=== PATIENT | male | born 1945 | race Caucasian/White ===

== ENCOUNTER 2023-03-10 21:01 | Emergency (ER) | payer OTHER ==
--- OUTSIDE RECORDS SUMMARY | 2023-03-10 21:03 | XMS REPORT | Continuity of Care Document ---
:1945 Author Organization [facility] t Address [address] [place] [address] Care Team Providers Name Role Phone Nora LANDEROS, Alexander Romero Primary Care Physician Raghavendra LANDEROS, Kevan Hayes Attending Clinician Tatyana Burgos Attending Clinician [phone] Payers Payer Name Policy Type Policy Number Effective Date Expiration Date S ource Problems Condition Condition Condition Status Onset Resolution Last Treating Co mments Source Name Details Category Date Date Treatment Clinician Date Lumbar Lumbar Disease Active [facility] stenosis stenosis 03-05 st with with 00:00: Hospita neurogenic neurogenic 00 l claudicati claudicati on on Allergies, Adverse Reactions, Alerts This patient has no known allergies or adverse reactions. Family History Family Member Diagnosis Comments Start Date Stop Date Source [facility] mother Old age [facility] Social History Social Habit Start Date Stop Date Quantity Comments Source Gender identity [facility] Sexual orientation [facility] History of Social 2022-10-19 2022-10-[address] function 00:00:00 00:00:00 Hospital Alcohol intake 2017-03-08 2017-03-08 Current Buddhist 00:00:00 00:00:00 non-drinker of Hospital alcohol (finding) Tobacco use and 2017-02-26 2017-02-26 Smokeless Buddhist exposure 00:00:00 00:00:00 tobacco non-user Hospital History of tobacco 1992-02-27 Current smoker [facility] use 00:00:00 Hospital Sex Ass[birth year] At [birth year] Buddhist 00:00:00 00:00:00 Hospital Smoking Status Start Date Stop Date Source Ex-smoker 2017-02-26 00:00:00 2017-02-26 00:00:00 [facility] Medications Ordered Filled Start Stop Current Ordering Indication Dosage Frequency Signature Comments Components Source Medication Medication Date Date Medication? Clinician (SIG) Name Name lisinopril Yes 20mg QD Take 20 mg M ethodi (PRINIVIL,Z 8-[address] ESTRIL) 20 10:33: nightly. Hos willie mg tablet 15 l amLODIPine Yes 5mg QD Take 5 mg Me thodi (NORVASC) 5 8-[address] mg tablet 10:33: daily. Hospit a 15 l simvastatin Yes 10mg QD Take 10 mg Methodi (ZOCOR) 10 8-[address] MG tablet 10:33: nightly. Hosp madai 15 l aspirin Yes 81mg QD Take 81 mg Meth everardo (ECOTRIN) 8-[address] 81 MG 10:33: daily. Hospita enteric 15 l coated tablet methocarbam Yes Take 1 Meth everardo ol 8-[address] (ROBAXIN-75 00:00: every 6 Hos willie 0) 750 MG 00 hours as l tablet needed for spasms Procedures Procedure Date / Time Performed Performing Clinician Rodo de la cruz US CAROTID DUPLEX 2022-05-15 16:25:48 Tatyana Duek [facility] SUZIE Mariscal Plan of Care Planned Activity Planned Date Details Comments Source Future Scheduled 2023-02-17 COVID-19 VACCINE (#1) [facility] Test 03:06:58 [code = COVID-19 VACCINE (#1)] Future Scheduled 2023-02-17 Hepatitis C screening [facility] Test 03:06:58 (procedure) [code = [id number]] Future Scheduled 2023-02-17 SHINGLES VACCINES (1 Met [facility] Test 03:06:58 of 2) [code = SHINGLES VACCINES (1 of 2)] Future Scheduled 2023-02-17 65+ PNEUMOCOCCAL [facility] Test 03:06:58 VACCINE (1 - PCV) [code = 65+ PNEUMOCOCCAL VACCINE (1 - PCV)] Future Scheduled 2023-02-17 INFLUENZA VACCINE [facility] Test 03:06:58 [code = INFLUENZA VACCINE] Encounters Start End Encounter Admission Attending Care Care Encounter Source Date/Time Date/Time Type Type Clinicians Facility Department ID 2021-08-21 Outpatient MDA PAULETTE [id number] 17:24:51 Andlolao n 2022-05-15 2022-05-15 [facility] Raghavendra, 1.2.840.1 [id number] Methodi 09:50:21 23:59:00 Encounter Kevan Hayes [id number] 3.430.2.7 Hospit a .[id number] l .8 2022-05-15 2022-05-15 [facility] [id number] 00:00:00 00:00:[address] KEVAN [address] 2022-05-15 2022-05-15 Travel 1.2.840.1 [id number] Methodi 00:00:00 00:00:[id number] 3.430.2.7 0.2.7.3.698 Ho spita .[id number] 084.8 l .8 2022-05-12 2022-05-12 Transcribe Marizolavrilgwen, 1.2.840.1 [id number] Method[facility] 00:00:00 00:00:00 Orders Tatyana 58144.1.[address] [place] 3.430.2.7 Hosp madai .[id number] l .8 Results This patient has no known results.
--- NOTE | 2023-03-10 21:49 | RAD REPORT ---
EXAM DESCRIPTION: RAD - Chest Single View - 03/10/2023 9:40 pm CLINICAL HISTORY: Cough;Dyspnea Chest pain. COMPARISON: No comparisons FINDINGS: Portable technique limits examination quality. Mild linear opacities bilaterally are nonspecific but may represent viral infection or interstitial e roula. The heart is mildly enlarged in size. No displaced fractures.
[2023-03-10 22:14] LABS: Hematocrit 41.8 % (39.6-49.0); Lymphocytes % 11.8 % (15.3-44.8); MCV 90.3 fL (80-100); MPV 8.9 fL (7.6-11.3); Platelets 119 thou/uL (152-406); RBC Red Blood Cell Count 4.63 M/uL (4.33-5.43)
[2023-03-10 22:33] LABS: Potassium 3.9 mEq/L (3.5-5.1)
--- NOTE | 2023-03-11 00:35 | ER ---
Nurse's Notes [facility] Name: Yulissa Loera Age: 77 yrs Sex: Male : 1945 Arrival Date: 03/10/2023 Time: 21:01 Bed 2 Private MD: Diagnosis: SARS-associated coronavirus as the cause of diseases classified elsewhere;Muscle weakness (generalized);Cough Presentation: 03/10 21:22 Chief complaint: Patient states: sick since Wednesday. tested positive for covid today. lg3 worsening symptoms. sore throat, cough, congestion, SOB, fatigue. Coronavirus screen: Client presents with at least one sign or symptom that may indicate coronavirus-19. Standard/surgical mask placed on the client. Ebola Screen: No symptoms or risks identified at this time. Initial Sepsis Screen: Does the patient meet any 2 criteria? No. Patient's initial sepsis screen is negative. Does the patient have a suspected source of infection? Yes: Productive cough/pneumonia. Risk Assessment: Do you want to hurt yourself or someone else? Patient reports no desire to harm self or others. Onset of symptoms was March 08, 2023. 21:22 Method Of Arrival: Ambulatory lg3 21:22 Acuity: SOFIYA 3 lg3 Triage Assessment: 21:29 General: Appears in no apparent distress. uncomfortable, Behavior is calm, cooperative. lg3 Pain: Complains of pain in generalized body aches. EENT: No deficits noted. Reports nasal congestion nasal discharge. Neuro: No deficits noted. Haddad Agitation-Sedation Scale (RASS): 0 - Alert and Calm Level of Consciousness is awake, alert, obeys commands, Oriented to person, place, time, situation. Cardiovascular: Capillary refill < 3 seconds Clubbing of nail beds is absent JVD is absent Patient's skin is warm and dry. Respiratory: Reports shortness of breath cough that is pain with cough Onset: The symptoms/episode began/occurred yesterday, the patient has moderate shortness of breath. GI: No deficits noted. No signs and/or symptoms were reported involving the gastrointestinal system. : No deficits noted. No signs and/or symptoms were reported regarding the genitourinary system. Derm: No deficits noted. No signs and/or symptoms reported regarding the dermatologic system. Musculoskeletal: Circulation, motion, and sensation intact. Range of motion: intact in all extremities. Historical: - Allergies: 21:24 No Known Allergies; lg3 - Home Meds: 21:24 Lisinopril Oral [Active]; amlodipine oral [Active]; lg3 - PMHx: 21:24 Hypertensive disorder; lung cancer; prostate cancer; lg3 - PSHx: 21:29 right upper lobe resection; cardiac stent X4; back; lg3 - Immunization history:: Adult Immunizations up to date, Client reports receiving the 2nd dose of the Covid vaccine. - Social history:: Smoking status: Patient denies any tobacco usage or history of. Patient/guardian denies using alcohol, street drugs. - Family history:: not pertinent. - Hospitalizations: : No recent hospitalization is reported. Screenin:45 [facility] ED Fall Risk Assessment (Adult) History of falling in the last 3 months, rv including since admission No falls in past 3 months (0 pts) Confusion or Disorientation Yes (5 pts) Intoxicated or Sedated No (0 pts) Impaired Gait No (0 pts) Mobility Assist Device Used No (0 pt) Altered Elimination No (0 pt) Score/Fall Risk Level 0 - 2 = Low Risk Oriented to surroundings, Maintained a safe environment, Educated pt \T\ family on fall prevention, incl call for assistance when getting out of bed, Assessed \T\ reinforced patient's understanding of fall precautions, Provided non-skid footwear, Hourly rounding (assess needs \T\ fall precautionary measures) done, Used ambulatory aids as needed (educated on \T\ assisted with), Used gait belt as appropriate. Abuse screen: Denies threats or abuse. Denies injuries from another. Nutritional screening: No deficits noted. Tuberculosis screening: No symptoms or risk factors identified. Assessment: 22:00 General: Appears in no apparent distress. comfortable, Behavior is calm, cooperative. rv 22:00 Pain: Denies pain. Neuro: Level of Consciousness is awake, alert, obeys commands, rv Oriented to person, place, time, situation. Cardiovascular: Rhythm is regular. Respiratory: Airway is patent Respiratory effort is even, unlabored, Breath sounds are clear bilaterally. GI: No signs and/or symptoms were reported involving the gastrointestinal system. : No signs and/or symptoms were reported regarding the genitourinary system. Derm: Skin is intact. 23:07 Reassessment: No changes from previously documented assessment. Patient and/or family vc1 updated on plan of care and expected duration. Pain level reassessed. Patient is alert, oriented x 3, equal unlabored respirations, skin warm/dry/pink. 03/11 00:01 Reassessment: No changes from previously documented assessment. Patient and/or family vc1 updated on plan of care and expected duration. Pain level reassessed. Patient is alert, oriented x 3, equal unlabored respirations, skin warm/dry/pink. Vital Signs: 03/10 21:22 BP 155 / 80; Pulse 76; Resp 19 S; Pulse Ox 97% on R/A; Weight 83.91 kg (R); Height 5 lg3 ft. 11 in. (R); 22:12 BP 148 / 70; Pulse 75; Pulse Ox 95% ; vc1 23:00 BP 144 / 70; Pulse 71; Resp 20; Pulse Ox 96% ; vc1 03/11 00:08 BP 142 / 74; Pulse 78; Resp 24; Pulse Ox 95% ; vc1 01:21 BP 119 / 67; Pulse 80; Resp 18; Temp 99; Pulse Ox 100% ; rv 03/10 21:22 Body Mass Index 25.80 (83.91 kg, 180.34 cm) lg3 Irasema Coma Score: 01:21 Eye Response: spontaneous(4). Motor Response: obeys commands(6). Verbal Response: rv oriented(5). Total: 15. ED Course: 03/10 21:04 Patient arrived in ED. jj6 21:04 Maninder Streeter MD is Attending Physician. rn 21:24 Triage completed. lg3 21:29 Arm band placed on right wrist. lg3 21:42 XRAY Chest (1 view) In Process Unspecified. EDMS 22:00 Inserted saline lock: 20 gauge in right antecubital area, using aseptic technique. rv Blood collected. 22:00 No provider procedures requiring assistance completed. rv 22:03 Bashir Morrow, TOBY is Primary Nurse. rv 22:46 Patient has correct armband on for positive identification. Bed in low position. Call rv light in reach. Side rails up X 1. Provided Education on: COVID, VACCINES. 23:03 CT Chest For PE Angio In Process Unspecified. EDMS 03/11 00:34 Sterling Guillen MD is Referral Physician. rn 01:22 IV discontinued, intact, bleeding controlled, No redness/swelling at site. Pressure rv dressing applied. Administered Medications: 00:43 Not Given (Not availablee): Paxlovid Dose Pack 150 mg-100 mg (EUA) 1 per protocol PO vc1 Per package directions 00:43 Drug: Levalbuterol Inhalation 1.25 mg Route: Inhalation; vc1 01:21 Follow up: Response: No adverse reaction rv 00:43 Drug: Decadron - Dexamethasone IVP 10 mg Route: IVP; Site: right antecubital; vc1 01:21 Follow up: Response: No adverse reaction rv Medication: 03/10 22:46 VIS not applicable for this client. rv Outcome: 03/11 00:34 Discharge ordered by . rn 01:21 Discharged to home ambulatory, with family. rv 01:21 Condition: improved 01:21 Discharge instructions given to patient, Instructed on discharge instructions, follow up and referral plans. medication usage, Demonstrated understanding of instructions, follow-up care, medications, Prescriptions given X 3. 01:22 Patient left the ED. rv Signatures: Dispatcher [employer] EDMS Maninder Streeter MD MD rn Vicente, Ronaldo, RN RN Kim Lim RN RN corey3 Maeve Batista6 Rosangela Chen RN RN vc1
--- NOTE | 2023-03-11 00:36 | EDPHYS ---
Physician Documentation [facility] Name: Yulissa Loera Age: 77 yrs Sex: Male : 1945 Arrival Date: 03/10/2023 Time: 21:01 Bed 2 Private MD: ED Physician Maninder Streeter HPI: 03/10 21:21 This 77 yrs old Male presents to ER via Unassigned with complaints of COVID+, Shortness rn Of Breath, Sore Throat, Fever, Chest Pain, Congestion. 21:21 The patient has shortness of breath with light activity. Onset: The symptoms/episode rn began/occurred 2 day(s) ago. Duration: The symptoms are intermittent. The patient's shortness of breath is aggravated by coughing, exertion, light activity. Severity of symptoms: At their worst the symptoms were moderate in the emergency department the symptoms are unchanged. The patient has not experienced similar symptoms in the past. Pt reports COVID + x 2 tests today, began feeling sick 2 days ago, thinks got it at [facility]. + fever/chills/cough/congestion/fatigue/decreased appetite. No vomiting. Does report small amount of blood in sputum. Has hx of right lower lung resection. NO hx of dvt/PE. . Historical: - Allergies: 21:24 No Known Allergies; lg3 - Home Meds: 21:24 Lisinopril Oral [Active]; amlodipine oral [Active]; lg3 - PMHx: 21:24 Hypertensive disorder; lung cancer; prostate cancer; lg3 - PSHx: 21:29 right upper lobe resection; cardiac stent X4; back; lg3 - Immunization history:: Adult Immunizations up to date, Client reports receiving the 2nd dose of the Covid vaccine. - Social history:: Smoking status: Patient denies any tobacco usage or history of. Patient/guardian denies using alcohol, street drugs. - Family history:: not pertinent. - Hospitalizations: : No recent hospitalization is reported. ROS: 21:21 Constitutional: + fever and chills Cardiovascular: Negative for palpitations, and rn edema, Respiratory: + cough and sob Abdomen/GI: + decreased appetite, negative for abd pain MS/Extremity: Negative for injury and deformity, Skin: Negative for injury, rash, and discoloration, Neuro: + generalized weakness and fatigue Exam: 21:21 Constitutional: This is a well developed, well nourished patient who is awake, alert, rn and in no acute distress. Head/Face: Normocephalic, atraumatic. ENT: dry MM, clear nasal drainage, no stridor Cardiovascular: Regular rate and rhythm. No pulse deficits. Respiratory: Bilateral crackles, no retractions. Abdomen/GI: Soft, non-tender Skin: Warm, dry MS/ Extremity: Pulses equal, no cyanosis. Neurovascular intact. Full, normal range of motion. Equal circumference. Neuro: Awake and alert, GCS 15 22:58 ECG was reviewed by the Attending Physician. rn 23:51 Cardiovascular: rn Vital Signs: 21:22 BP 155 / 80; Pulse 76; Resp 19 S; Pulse Ox 97% on R/A; Weight 83.91 kg (R); Height 5 lg3 ft. 11 in. (R); 22:12 BP 148 / 70; Pulse 75; Pulse Ox 95% ; vc1 23:00 BP 144 / 70; Pulse 71; Resp 20; Pulse Ox 96% ; vc1 03/11 00:08 BP 142 / 74; Pulse 78; Resp 24; Pulse Ox 95% ; vc1 01:21 BP 119 / 67; Pulse 80; Resp 18; Temp 99; Pulse Ox 100% ; rv 03/10 21:22 Body Mass Index 25.80 (83.91 kg, 180.34 cm) lg3 Irasema Coma Score: 01:21 Eye Response: spontaneous(4). Motor Response: obeys commands(6). Verbal Response: rv oriented(5). Total: 15. MDM: 03/10 21:04 Patient medically screened. rn 21:58 Independent interpretation of the following test(s) in the Emergency Department X-Ray: rn My interpretation is CXR images show interstitial prominence per my interpretation. 23:51 Data reviewed:. rn 03/11 00:32 Differential diagnosis: Anemia Anxiety Reaction Bronchitis Myocardial Infarction rn pneumonia, Pneumothorax pulmonary edema, Pulmonary Embolism. Antibiotic administration: Not indicated. Counseling: I had a detailed discussion with the patient and/or guardian regarding the historical points, exam findings, and any diagnostic results supporting the discharge/admit diagnosis, lab results, radiology results, the need for outpatient follow up, to return to the emergency department if symptoms worsen or persist or if there are any questions or concerns that arise at home. Special discussion: I discussed with the patient/guardian in detail that at this point there is no indication for admission to the hospital. It is understood, however, that if the symptoms persist or worsen the patient needs to return immediately for re-evaluation. Based on the history and exam findings, there is no indication for further emergent testing or inpatient evaluation. I discussed with the patient/guardian the need to see the primary care provider for further evaluation of the symptoms. I discussed with the patient/guardian the need to see the electronic publications specialist for further evaluation of the symptoms. ED course: Pt with neg CT chest PE protocol, no focal pneumonia, oxygen at his baseline without increase requirement. Patient only 3 days in to illness. Family is going to watch him closely to see if needs to return or be admitted. Strict return precautions given and understood. . 03/10 21:20 Order name: CBC with Diff; Complete Time: 22:20 rn 03/10 21:20 Order name: Basic Metabolic Panel; Complete Time: 22:41 03/10 21:27 Order name: Troponin High Sensitivity; Complete Time: 22:41 rn 03/10 21:07 Order name: XRAY Chest (1 view); Complete Time: 21:54 rn 03/10 21:20 Order name: CT Chest For PE Angio rn 03/10 21:20 Order name: EKG; Complete Time: 21:21 rn 03/10 21:20 Order name: IV Start; Complete Time: 22:03 rn 03/10 21:20 Order name: EKG - Nurse/Tech; Complete Time: 21:49 rn EC/23 22:58 Rate is 69 beats/min. Rhythm is regular. QRS [place] is Normal. [place] interval is normal. QRS rn interval is normal. QT interval is normal. No Q waves. T waves are Normal. No ST changes noted. Clinical impression: NSR w/ Non-specific ST/T Changes. Interpreted by me. Reviewed by me. Administered Medications: 03/11 00:43 Not Given (Not availablee): Paxlovid Dose Pack 150 mg-100 mg (EUA) 1 per protocol PO vc1 Per package directions 00:43 Drug: Levalbuterol Inhalation 1.25 mg Route: Inhalation; vc1 01:21 Follow up: Response: No adverse reaction rv 00:43 Drug: Decadron - Dexamethasone IVP 10 mg Route: IVP; Site: right antecubital; vc1 01:21 Follow up: Response: No adverse reaction rv Disposition Summary: 03/11/23 00:34 Discharge Ordered Location: Home rn Problem: new rn Symptoms: are unchanged rn Condition: Stable rn Diagnosis - SARS-associated coronavirus as the cause of diseases classified elsewhere rn - Muscle weakness (generalized) rn - Cough rn Followup: rn - With: Sterling Guillen MD - When: 2 - 3 days - Reason: Recheck today's complaints, Re-evaluation by your physician Discharge Instructions: - Discharge Summary Sheet rn - COVID-19 rn - 10 Things You Can Do to Manage Your COVID-19 Symptoms at Home - [facility] (01/31/2021) rn - Viral Illness, Adult rn Forms: - Medication Reconciliation Form rn - Thank You Letter rn - Antibiotic 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 - Prescription Opioid Use rn - Patient Portal Instructions rn - Leadership Thank You Letter rn Prescriptions: - Paxlovid 150-100 mg Oral Tablet, Dose Pack - take 1 dose pack by ORAL route as directed on dose pack for 5 days take ONE 150 rn mg tablet of nirmatrelvir with ONE 100 mg tablet of ritonavir twice daily for 5 days; 1 packet; Refills: 0, Product Selection Permitted - albuterol sulfate 90 mcg/actuation Inhalation HFA Aerosol Inhaler - inhale 2 puff by INHALATION route every 4 to 6 hours As needed as needed for rn bronchospasm; administer via ventilator; 1 unit; Refills: 0, Product Selection Permitted - Medrol (Wenceslao) 4 mg Oral Tablets, Dose Pack - take 1 tablet by ORAL route as directed - follow package instructions; 1 rn packet; Refills: 0, Product Selection Permitted Signatures: Dispatcher [employer] Maninder Daley MD MD rn Gibson, Lacie RN RN lg3 Rosangela Chen RN RN vc1 Bashir Morrow RN rv
[2023-03-11] MEDS ORDERED: dexAMETHasone 10 MG/ML VIAL ONE (00:47)
[2023-03-11] MEDS ORDERED: LEVALBUTEROL 1.25 MG/3 ML NEB ONE (00:47)
[2023-03-11 02:42] VITALS: BP 119/67; TEMP 99; O2SAT 100
--- NOTE | 2023-03-11 10:04 | RAD REPORT ---
EXAM DESCRIPTION: Chest For Pe Angio CLINICAL HISTORY: 77-year-old male with hemoptysis and cough. COMPARISON: None. TECHNIQUE: CT angiography of the pulmonary arteries was performed following intravenous administrati on of contrast. Coronal and bilateral oblique maximum intensity projections (MIPS) were created. This exam was performed according to our departmental dose optimization program which includes use of aut omated exposure control, adjustment of the mA and/or kV according to patient size and/or use of itera tive reconstruction technique. FINDINGS: Chest: Evaluation through the lungs reveals no focal opacity, pleural effusion or pneumothorax. Pulmonary nodule measures 9 x 9 mm at the level of the left lower lobe versus scarring or rounded ate lectasis (401, image 1). There is minimal dependent basilar atelectasis and scarring. Tracheobronchial wall thickening ETIOLOG Y otherwise the tracheobronchial airways are patent. No significant mediastinal or axillary lymphaden opathy by CT measurement criteria. Limited evaluation of the upper abdomen shows no acute intra-abdominal abnormalities. Small hiatal he rnia. Cystic-type hepatic hypoattenuating structures may reflect hepatic cysts largest within the lef t lobe liver measuring 10 Hounsfield units and 0.6 cm. Smaller right liver lobe cysts are too small t o further characterize. The osseous structures are within normal limits. CT angiography: Diagnostic CT angiography of the pulmonary arteries without intraluminal filling defe ct noted to suggest pulmonary arterial embolus. IMPRESSION: 1. Diagnostic pulmonary angiography without findings to suggest pulmonary arterial embol us. 2. The lungs are clear without focal opacity, pleural effusion or pneumothorax. 3. No specific findings are noted to suggest etiology of the patient's chest pain and shortness of br eath. Electronically signed by: Michelle Marquez MD 03/11/2023 12:04 AM CDT Due to temporary technical issues with the PACS/Fluency reporting system, reports are being signed by the in house radiologist without review as a courtesy to ensure prompt reporting. The interpreting r adiologist is fully responsible for the content of the report.
--- NOTE | 2023-03-11 12:37 | EKG ---
Test Date: 2023-03-10 Test Time: 21:45:13 Fur Blender: ARISTEO MEASUREMENT RESULTS: Intervals: Rate: 69 DE: 146 QRSD: 88 QT: 346 QTc: 370 [place]: P: 61 DE: 146 QRS: 25 T: 85 INTERPRETIVE STATEMENTS: Normal sinus rhythm Nonspecific T wave abnormality Abnormal ECG Compared to ECG 04/28/2006 12:59:33 T-wave abnormality now present Electronically Signed On 03-11-23 12:36:35 CDT by Joshua Heath
== END 2023-03-11 01:22 | disposition home or self-care (01) ==
LOC: ER 21:01
DX: U07.1 COVID-19 (principal); M62.81 Muscle weakness (generalized); I10 Essential (primary) hypertension; Z95.818 Presence of other cardiac implants and grafts; Z85.46 Personal history of malignant neoplasm of prostate; Z85.118 Personal history of other malignant neoplasm of bronchus and lung
CPT/HCPCS: 93005; 85025; 80048; 36415; 84484; 71275; 71045; 96374; 99285; Q9967; J7614; J1100

== ENCOUNTER 2023-03-15 08:46 | Emergency (ER) | payer OTHER ==
--- OUTSIDE RECORDS SUMMARY | 2023-03-15 08:50 | XMS REPORT | Continuity of Care Document ---
:1945 Author Organization [facility] t Address [address] [place] [address] Care Team Providers Name Role Phone [phone] Primary Care Physician Unavailable Raghavendra LANDEROS, Kevan Hayes Attending Clinician Tatyana Burgos Attending Clinician [phone] BRENDA ABDI Attending Clinician Unavailable Brenda Rowe Attending Clinician Jazmyn Torrez MD Attending Clinician Payers Payer Name Policy Type Policy Number Effective Date Expiration Date Beverly [employer] Medine [id number] 2017 00:00:00 SPRING Problems Condition Condition Condition Status Onset Resolution Last Treating Co mments Source Name Details Category Date Date Treatment Clinician Date Lumbar Lumbar Disease Active [facility] stenosis stenosis 8-18 st with with 00:00: Hospita neurogenic neurogenic 00 l claudicati claudicati on on Hyperlipid Hyperlipi Problem Active 2014-04-02 Memoria emia demia 03:02:50 l Active Jaxon Problem 04/02/2014 [facility] MALAISE MALAISE Problem Active 2014-04-02 Me moria AND AND 03:02:50 l FATIGUE FATIGUE Jaxon NEC NEC Active Problem 04/02/2014 [facility] Benign Benign Problem Active 2014-04-02 Mem oria hypertensi hypertensi 03:02:50 l on on Active Jaxon Problem 04/02/2014 [facility] Murmur Murmur Problem Active 2014-04-02 Umesh zee Active 03:02:50 l Problem [place] 04/02/2014 [facility] No known No known Disease Unive rs active active ity of problems problems [facility] Allergies, Adverse Reactions, Alerts Allergy Allergy Status Severity Reaction(s) Onset Inactive Treating Comm ents Source Name Type Date Date Clinician N.JoaoA. NAndrea. Active Info Not Umesh zee Available 23 l 00:00: [place] 00 NO KNOWN Drug Active Univers ALLERGIE Class ity of S [facility] Family History Family Member Diagnosis Comments Start Date Stop Date Source Natural father [facility] Natural mother Old age [facility] Social History Social Habit Start Date Stop Date Quantity Comments Source Gender identity [facility] Sexual orientation [facility] History of Social 2022-10-19 2022-10-[address] function 00:00:00 00:00:00 Hospital Alcohol intake 2017-03-08 2017-03-08 Current [facility] 00:00:00 00:00:00 non-drinker of Hospital alcohol (finding) Tobacco use and 2017-02-26 2017-02-26 Smokeless [facility] exposure 00:00:00 00:00:00 tobacco non-user Hospital Caffeine: 2014-02-07 2014-02-07 [facility] 00:00:00 00:00:00 History of tobacco 1992-02-27 Cigarette Smoker [facility] Sex [facility]igned At [birth year] [facility] 00:[facility] Smoking Status Start Date Stop Date Source Unknown if ever smoked [facility] Ex-smoker 2017-02-26 00:00:00 2017-02-26 [facility] Medications Ordered Filled Start Stop Current Ordering Indication Dosage Frequency Signature Comments Components Source Medication Medication Date Date Medication? Clinician (SIG) Name Name amLODIPine Yes Univers 5 mg tablet 9-17 ity of 00:00: [facility] simvastatin Yes Univer s 40 mg 9-17 ity of tablet 00:00: [place] [facility] Branch lisinopriL Yes Univers 20 mg 9-17 ity of tablet 00:00: [place] 00 Medical Branch ketorolac 2018-0 Yes 10mg Take 1 Univer s 10 mg 8-19 tablet by ity of tablet 00:00: mouth [place] 00 every 6 Medical (six) Branch hours as needed for Pain (scale 7-10). tamsulosin 2018-0 Yes .4mg Take 1 Unive rs 0.4 mg 24 8-19 capsule by ity of hr capsule 00:00: mouth at [place] as 00 bedtime. Medical Branch levoFLOXaci 2018-0 Yes 500mg Take 1 Uni vers n 8-19 tablet by ity of (LEVAQUIN) 00:00: mouth [place] 500 mg 00 every 24 Medical tablet (twenty-fo Branch ur) hours. lisinopril 2017-0 Yes 20mg QD Take 20 mg M ethodi (PRINIVIL,Z 8-[address] ESTRIL) 20 10:33: nightly. Hos willie mg tablet 15 l amLODIPine 2017-0 Yes 5mg QD Take 5 mg Me thodi (NORVASC) 5 8-[address] mg tablet 10:33: daily. Hospit a 15 l simvastatin 2017-0 Yes 10mg QD Take 10 mg Methodi (ZOCOR) 10 8-[address] MG tablet 10:33: nightly. Hosp madai 15 l aspirin 2017-0 Yes 81mg QD Take 81 mg Meth everardo (ECOTRIN) 8-[address] 81 MG 10:33: daily. Hospita enteric 15 l coated tablet lisinopril 2017-0 Yes 20mg QD Take 20 mg M ethodi (PRINIVIL,Z 8-[address] ESTRIL) 20 10:33: nightly. Hos willie mg tablet 15 l amLODIPine 2017-0 Yes 5mg QD Take 5 mg Me thodi (NORVASC) 5 8-[address] mg tablet 10:33: daily. Hospit a 15 l simvastatin 2017-0 Yes 10mg QD Take 10 mg Method[facility] (ZOCOR) 10 8-[address] MG tablet 10:33: nightly. Hosp madai 15 l aspirin 2017-0 Yes 81mg QD Take 81 mg Meth everardo (ECOTRIN) 8-[address] 81 MG 10:33: daily. Hospita enteric 15 l coated tablet methocarbam 2017-0 Yes Take 1 Meth everardo ol 8-[address] (ROBAXIN-75 00:00: every 6 Hos willie 0) 750 MG 00 hours as l tablet needed for spasms methocarbam Yes Take 1 Meth everardo ol 8-[address] (ROBAXIN-75 00:00: every 6 Hos willie 0) 750 MG 00 hours as l tablet needed for spasms amlodipine Yes Otto 1 tab(s) Me moria 9-15 [place] l 03:02: [place] 50 lisinopril Yes Otto 1 tab(s) Me moria 9-15 [place] l 03:02: [place] 50 simvastatin Yes Otto 1 tab(s) M emoria 7-23 Olguin l 00:00: [place] 00 Vital Signs Vital Name Observation Time Observation Value Comments Source Systolic blood 2021-05-21 15:51:00 122 [facility]Hg[facility] Diastolic blood 2021-05-21 15:51:00 78 [facility]Hg[facility] 2021-05-21 15:51:00 59 /min [facility] Body temperature 2021-05-21 15:51:00 36.67 Jelly [facility] Respiratory rate 2021-05-21 15:51:00 18 /min [facility] Body weight 2021-05-21 15:51:00 92.647 kg [facility] BMI 2021-05-21 15:51:00 28.49 kg/m2 [facility] Oxygen saturation in 2021-05-21 15:51:00 100 /min [facility] Arterial blood by [facility] Pulse oximetry Branch Diastolic (mm Hg) 2014-02-07 15:00:00 [facility] florenceal Jaxon Systolic (mm Hg) 2014-02-07 15:00:00 Umesh zeel Jaxon Weight 2014-02-07 15:00:00 [facility] Height 2014-02-07 15:00:00 [facility] Procedures Procedure Date / Time Performed Performing Clinician Rodo GORMAN CAROTID DUPLEX 2022-05-15 16:25:48 Tatyana [facility] Plan of Care Planned Activity Planned Date Details Comments Source Future Scheduled 2023-03-13 COVID-[facility] Test 04:16:56 [code = COVID-19 VACCINE (#1)] Future Scheduled 2023-03-13 Hepatitis [facility] Test 04:16:56 (procedure) [code = 748067905] Future Scheduled 2023-03-13 SHINGLES VACCINES (1 [facility] Test 04:16:56 of 2) [code = SHINGLES VACCINES (1 of 2)] Future Scheduled 2023-03-13 65+ PNEUMOCOCCAL [facility] Hospital Test 04:16:56 VACCINE (1 - PCV) [code = 65+ PNEUMOCOCCAL VACCINE (1 - PCV)] Future Scheduled 2023-03-13 [facility] 04:16:56 [code = INFLUENZA VACCINE (#1)] Future Scheduled 2023-02-17 COVID-19 VACCINE (#1) [facility] Test 03:06:58 [code = COVID-19 VACCINE (#1)] Future Scheduled 2023-02-17 Hepatitis C screening [facility] Test 03:06:58 (procedure) [code = 609372205] Future Scheduled 2023-02-17 SHINGLES VACCINES (1 [facility] Test 03:06:58 of 2) [code = SHINGLES VACCINES (1 of 2)] Future Scheduled 2023-02-17 65+ PNEUMOCOCCAL [facility] Test 03:06:58 VACCINE (1 - PCV) [code = 65+ PNEUMOCOCCAL VACCINE (1 - PCV)] Future Scheduled 2023-02-17 INFLUENZA VACCINE [facility] Test 03:06:58 [code = INFLUENZA VACCINE] Encounters Start End Encounter Admission Attending Care Care Encounter Source Date/Time Date/Time Type Type Clinicians Facility Department ID 2021-08-21 Outpatient MDA MDA [id number] 17:24:51 Anderso n 2022-05-15 2022-05-15 [facility], 1.2.840.1 [id number] Methodi 09:50:21 23:59:00 Encounter Kevan Hayes [id number] 3.430.2.7 Hospit a .3.442212 l .8 2022-05-15 2022-05-15 [facility], 1.2.840.1 [id number] Methodi 09:50:21 23:59:00 Encounter Kevan Hayes [id number] 3.430.2.7 Hospit a .3.606066 l .8 2022-05-15 2022-05-15 Travel 1.2.840.1 1.2.621.014 [id number] Methodi 00:00:00 00:00:[address] 3.430.2.7 0.2.7.3.698 Ho spita .3.262041 084.8 l .8 2022-05-15 2022-05-15 Travel 1.2.840.1 1.2.278.838 [id number] Methodi 00:00:00 00:00:[address] 3.430.2.7 0.2.7.3.698 Ho spita .3.979757 084.8 l .8 2022-05-12 2022-05-12 Transcribe [place], 1.2.840.1 [id number] Methodi 00:00:00 00:00:00 Orders Tatyana 73370.1.[address] [place] 3.430.2.7 Hosp madai .3.495565 l .8 2022-05-12 2022-05-12 Transcribe [place], 1.2.840.1 [id number] Methodi 00:00:00 00:00:00 Orders Tatyana 69532.1.[address] [place] 3.430.2.7 Hosp madai .3.852606 l .8 2021-05-21 2021-05-21 Outpatient R TRINIDAD ORVERONIKA [facility] [id number] Univers 11:00:00 11:20:07 BRENDA shelton [facility] 2021-05-21 2021-05-21 Urgent Brenda Abdi [facility] 1.2.840. 114 [id number] [facility] 10:46:51 11:06:51 Care [facility] 350.1.13.10 [facility] 4.2.7.2.686 [place] as SULY?BLEA [id number] [place] d[place] [address] MEDICAL OFFICE BUILDING 2021-05-21 2021-05-21 Outpatient [facility] [id number] Univers 09:00:00 09:00:00 [id number] ity [facility] 2014-02-22 2014-02-22 Test nullFlavo Comprehensi 2251 ad37-6 Memoria 17:28:00 17:28:00 results r ve Heart 653-43e7-8 l Care PA 3ce-a5742m Mervat nn 3d8fc9 2014-02-22 2014-02-22 Test nullFlavo Comprehensi 14ab 643e-6 Memoria 17:28:00 17:28:00 results r ve Heart g18-68u1-u l Care PA fcf-79f392 Mervat nn c2b7e4 2014-02-22 2014-02-22 Test nullFlavo Comprehensi fd8a 1d43-9 Memoria 17:28:00 17:28:00 results r ve Heart 983-4cd3-8 l Care PA 447-fcfa02 Mervat nn z08921 2014-02-22 2014-02-22 Test nullFlavo Comprehensi ad90 2539-8 Memoria 17:28:00 17:28:00 results r ve Heart z4h-2307-8 l Care PA 494-36a8e0 Mervat nn 7x211a 2014-02-22 2014-02-22 Test nullFlavo Comprehensi 4481 fe29-4 Memoria 17:28:00 17:28:00 results r ve Heart t4y-77s0-4 l Care PA p43-6tz3bz Mervat nn 16bc4d 2014-02-22 2014-02-22 Outpatient Comprehen Comprehensi 3 [id number] eClinic 12:28:00 12:28:00 sive ve Heart alWor ny Heart Care PA Care PA 2014-02-21 2014-02-21 Unknown nullFlavo Comprehensi 92d7 1d1a-3 Memoria 22:07:00 22:07:00 r ve Heart fb2-41e7-8 l Care PA y83-444104 Mervat nn [id number] 2062-08-06 2014-02-21 Unknown nullFlavo Comprehensi c2c5 912f-4 Memoria 22:07:00 22:07:00 r ve Heart 5m4-04v7-0 l Care PA [id number] Mervat nn pf3074 2014-02-21 2014-02-21 Unknown nullFlavo Comprehensi bc91 3eb6-1 Memoria 22:07:00 22:07:00 r ve Heart 82f-4b5b-b l Care PA bdf-317f65 Mervat nn 979f47 2014-02-21 2014-02-21 Unknown nullFlavo Comprehensi 74b1 5296-e Memoria 22:07:00 22:07:00 r ve Heart 9t7-2qs1-b l Care PA 0p6-04054a Mervat nn 6669e5 2014-02-21 2014-02-21 Unknown nullFlavo Comprehensi 4aa5 7b28-3 Memoria 22:07:00 22:07:00 r ve Heart a90-3mvs-c l Care PA c3f-x28nqr [facility] nn a7ef60 2014-02-21 2014-02-21 Outpatient Comprehen Comprehensi 3 [id number] eClinic 17:07:00 17:07:00 sive ve Heart alWor ny Heart Care PA Care PA 2014-02-16 2014-02-16 CT CHEST nullFlavo Comprehensi 3ea 9ffy7-y Memoria 15:29:00 15:29:00 W/WO r ve Heart 4a9-8bb6-6 l CONTRAST Care PA 524-9vc957 Herm yael b9cc07 2014-02-16 2014-02-16 CT CHEST nullFlavo Comprehensi bad u821z-3 Memoria 15:29:00 15:29:00 W/WO r ve Heart 5be-434b-8 l CONTRAST Care PA u2k-730s20 Herm yael 3a7db2 2014-02-16 2014-02-16 CT CHEST nullFlavo Comprehensi 7c3 4r007-p Memoria 15:29:00 15:29:00 W/WO r ve Heart 774-44c2-9 l CONTRAST Care PA 128-fd2ef7 Herm yael 7df8cd 2014-02-16 2014-02-16 CT CHEST nullFlavo Comprehensi ca2 43n38-7 Memoria 15:29:00 15:29:00 W/WO r ve Heart 709-4f9c-9 l CONTRAST Care PA 78c-5034e5 Herm yael 984da2 2014-02-16 2014-02-16 CT CHEST nullFlavo Comprehensi b9f s8g2w-2 Memoria 15:29:00 15:29:00 W/WO r ve Heart 941-4896-a l CONTRAST Care PA 32c-5784a6 Herm yael ff84d1 2014-02-16 2014-02-16 Outpatient Comprehen Comprehensi 3 [id number] eClinic 10:29:00 10:29:00 sive ve Heart alWor ny Heart Care PA Care PA 2014-02-14 2014-02-14 Lab nullFlavo Comprehensi 321f 46e4-6 Memoria 17:32:00 17:32:00 Results r ve Heart n11-3web-5 l Care PA 4df-9a1d02 Mervat nn 68c260 2014-02-14 2014-02-14 Lab nullFlavo Comprehensi e506 9e09-7 Memoria 17:32:00 17:32:00 Results r ve Heart 995-4bad-a l Care PA [id number] Mervat nn 92d2d2 2014-02-14 2014-02-14 Lab nullFlavo Comprehensi c0a7 d31c-e Memoria 17:32:00 17:32:00 Results r ve Heart 167-47d1-b l Care PA 95e-316f8b Mervat nn 9ff3ae 2014-02-14 2014-02-14 Lab nullFlavo Comprehensi b89c 449b-6 Memoria 17:32:00 17:32:00 Results r ve Heart x81-8kkh-0 l Care PA 6df-4958d8 Mervat nn 1c4ce8 2014-02-14 2014-02-14 Lab nullFlavo Comprehensi 7a6d 1004-d Memoria 17:32:00 17:32:00 Results r ve Heart 2p7-25s3-9 l Care PA 13c-8daf84 Mervat nn 52ffcb 2014-02-14 2014-02-14 Outpatient Comprehen Comprehensi 3 [id number] eClinic 12:32:00 12:32:00 sive ve Heart alWor ny Heart Care PA Care PA 2014-02-07 2014-02-07 Unknown nullFlavo Comprehensi 1f09 b391-1 Memoria 15:00:00 15:00:00 r ve Heart 7cf-494b-9 l Care PA 781-43e4c2 Mervat nn 5w986b 2014-02-07 2014-02-07 Outpatient Comprehen Comprehensi 3 [id number] eClinic 10:00:00 10:00:00 sive ve Heart alWor ny Heart Care PA Care PA Results This patient has no known results.
[2023-03-15] MEDS ORDERED: IBUPROFEN 400 MG TAB ONE (09:47)
[2023-03-15] MEDS ORDERED: ONDANSETRON 4 MG/2 ML VIAL ONE (09:47)
[2023-03-15] MEDS ORDERED: NA CHLORIDE 0.9% 1,000 ML ONE (09:47)
[2023-03-15 09:57] LABS: Absolute Lymphocytes (CBC) 0.6 K/uL (0.7-4.9); Hematocrit 40.8 % (39.6-49.0); Lymphocytes % 11.5 % (15.3-44.8); MCV 89.5 fL (80-100); Platelets 164 thou/uL (152-406); RBC Red Blood Cell Count 4.56 M/uL (4.33-5.43)
[2023-03-15 10:10] LABS: Albumin 3.4 g/dL (3.4-5.0); Bilirubin Direct 0.2 mg/dL (0-0.2); Bilirubin Indirect, Calculated 0.7 mg/dL (0.2-0.8); Bilirubin Total 0.9 mg/dL (0.2-1.0); Potassium 3.7 mEq/L (3.5-5.1)
--- NOTE | 2023-03-15 10:29 | RAD REPORT ---
[facility]AM DES[facility] 9:55 am CLINICAL HISTORY: COVID COMPARISON: Chest Single View dated 03/10/2023; Chest For Pe Angio dated 03/10/2023 TECHNIQUE: Portable AP view of the chest. FINDINGS: The lungs are clear. No pneumothorax or effusion. The cardiomediastinal contours are unch anged, with some prominence of the central vascular markings, stable. Surgical clips in the region of the right hilum again seen. . IMPRESSION: No acute cardiopulmonary process.
--- NOTE | 2023-03-15 10:55 | RAD REPORT ---
EXAM DESCRIPTION: CT - Abdomen Pelvis W Contrast - 03/15/2023 10:30 am CLINICAL HISTORY: left sided abd pain, fever COMPARISON: Chest For Pe Angio dated 03/10/2023 TECHNIQUE: Thin cut axial CT imaging of the abdomen and pelvis was performed following intravenous a dministration of 100 mL Isovue 300. Multiplanar reformats were generated and reviewed. All CT scans are performed using dose optimization technique as appropriate and may include automated exposure control or mA/KV adjustment according to patient size. FINDINGS: No suspicious findings in the lung bases. The liver shows a fluid density 1.8 cm cyst in the left lobe and other sub centimeter hypoattenuating lesions suggestive of small cysts but difficult to characterize. Adrenal glands, spleen, and pancrea s show no suspicious findings. Gallbladder shows a small calculus near the neck. No intra or extrahep atic biliary ductal dilation. Symmetric renal function is seen with no hydronephrosis or suspicious renal mass. Small bilateral maikel al fluid density cysts. No dilated bowel loops or bowel wall thickening. No free air, free fluid or inflammatory stranding. N o hernia, mass or bulky lymphadenopathy. The urinary bladder is without significant finding. Prostato megaly. No suspicious bony findings. IMPRESSION: No acute intra-abdominal process. Small gallstone near the gallbladder neck. Benign-appearing hepatic and renal cysts. Prostatomegaly.
--- NOTE | 2023-03-15 12:16 | EDPHYS ---
Physician Documentation [facility] Name: Yulissa Loera Age: 77 yrs Sex: Male : 1945 Arrival Date: 03/15/2023 Time: 08:46 Bed 20 Private MD: ED Physician Maninder Streeter HPI: 03/15 09:43 This 77 yrs old Male presents to ER via Wheelchair with complaints of Covid Positive, rn Nausea/Vomiting, Excessive sweating. 09:43 The patient presents to the emergency department with nausea, vomiting, abdominal pain. rn Onset: The symptoms/episode began/occurred 1 week(s) ago. The symptoms are aggravated by nothing. The symptoms are alleviated by nothing. Severity of symptoms: At their worst the symptoms were moderate in the emergency department the symptoms are unchanged. The patient has not experienced similar symptoms in the past. The patient has been recently seen at the [facility] Emergency Department. Pt with COVID for 1 week, initially seen here on day 3 for cough and sob, states respiratory symptoms have improved, but now with nausea/vomiting/dehydration/weakness. Also had 102 temp today. . Historical: - Allergies: 09:12 No Known Allergies; iw - Home Meds: 09:12 amlodipine oral [Active]; lisinopril Oral [Active]; iw - PMHx: 09:12 Hypertensive disorder; Lung Cancer; Prostate Cancer; iw - PSHx: 09:12 back; cardiac stent X4; right upper lobe resection; iw - Immunization history:: Client reports having NOT received the Covid vaccine. - Social history:: Smoking status: Patient/guardian denies using tobacco, the patient reports quitting approximately 30 years ago. - Family history:: not pertinent. - Hospitalizations: : No recent hospitalization is reported. 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 Exam: 09:43 Constitutional: This is a well developed, well nourished patient who is awake, alert, rn and in no acute distress. Head/Face: Normocephalic, atraumatic. Cardiovascular: Regular rate and rhythm. No pulse deficits. Respiratory: No increased work of breathing, no retractions or nasal flaring. Abdomen/GI: soft, + mild LLQ tenderness, no rebound Skin: Warm, dry MS/ Extremity: Pulses equal, no cyanosis. Neuro: Awake and alert, GCS 15 Vital Signs: 09:09 BP 140 / 78; Pulse 70; Resp 19; Temp 99.2; Pulse Ox 99% on R/A; Weight 86.18 kg; Height iw 5 ft. 11 in. ; 10:00 BP 131 / 66; Pulse 66; Resp 18; Pulse Ox 96% on R/A; eh3 11:00 BP 109 / 56; Pulse 59; Resp 18; Pulse Ox 95% on R/A; eh3 12:00 BP 115 / 62; Pulse 64; Resp 18; Pulse Ox 96% on R/A; eh3 09:09 Body Mass Index 26.50 (86.18 kg, 180.34 cm) iw MDM: 08:52 Patient medically screened. rn 12:13 Differential diagnosis: Nonspecific abd pain, gastritis, diverticulitis, viral rn gastroenteritis, gastroenteritis. Data reviewed: vital signs, nurses notes, lab test result(s), radiologic studies, CT scan, and as a result, I will discharge patient. Independent interpretation of the following test(s) in the Emergency Department X-Ray: My interpretation is CXR images neg for focal pneumonia per my interpretation. Counseling: I had a detailed discussion with the patient and/or guardian regarding the historical points, exam findings, and any diagnostic results supporting the discharge/admit diagnosis, lab results, radiology results, the need for outpatient follow up, to return to the emergency department if symptoms worsen or persist or if there are any questions or concerns that arise at home. 12:15 Response to treatment: the patient's symptoms have markedly improved after treatment, rn and as a result, I will discharge patient. Special discussion: I discussed with the patient/guardian in detail that at this point there is no indication for admission to the hospital. It is understood, however, that if the symptoms persist or worsen the patient needs to return immediately for re-evaluation. 03/15 09:20 Order name: CBC with Diff; Complete Time: 10:41 rn 03/15 09:20 Order name: Basic Metabolic Panel; Complete Time: 10:41 rn 03/15 09:20 Order name: LFT's; Complete Time: 10:41 rn 03/15 09:20 Order name: CK; Complete Time: 10:41 rn 03/15 09:20 Order name: XRAY Chest (1 view); Complete Time: 10:41 rn 03/15 09:21 Order name: CT Abd/Pelvis - IV Contrast Only; Complete Time: 10:58 rn 03/15 09:20 Order name: IV Start; Complete Time: 09:42 rn Administered Medications: 09:42 Drug: NS 0.9% IV 1000 ml Route: IV; Rate: 1000 ml; Site: right antecubital; eh3 11:34 Follow up: IV Status: Completed infusion; IV Intake: 1000ml eh3 09:42 Drug: Ondansetron IVP 4 mg Route: IVP; Site: right antecubital; eh3 10:30 Follow up: Response: No adverse reaction eh3 09:42 Drug: Ibuprofen PO 600 mg Route: PO; eh3 10:29 Follow up: Response: No adverse reaction eh3 Disposition Summary: 03/15/23 12:16 Discharge Ordered Location: Home rn Problem: an ongoing problem rn Symptoms: have improved rn Condition: Stable rn Diagnosis - SARS-associated coronavirus as the cause of diseases classified elsewhere rn - Dehydration rn Followup: rn - With: Private Physician - When: As needed - Reason: Recheck today's complaints, Re-evaluation by your physician Discharge Instructions: - Discharge Summary Sheet rn - Dehydration, Adult rn - COVID-19 rn - Viral Illness, Adult rn Forms: - Medication Reconciliation Form rn - Thank You Letter rn - 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
--- NOTE | 2023-03-15 12:16 | ER ---
Nurse's Notes [facility] Name: Yulissa Loera Age: 77 yrs Sex: Male : 1945 Arrival Date: 03/15/2023 Time: 08:46 Bed 20 Private MD: Diagnosis: SARS-associated coronavirus as the cause of diseases classified elsewhere;Dehydration Presentation: 03/15 09:09 Chief complaint: Patient states: tested positive for COVID Wednesday , was seen here iw and they did an xray and CT , prescribed steroids and inhaler, does not have pneumonia, now he's been sweating and has fever and yesterday started vomiting and having diarrhea. Coronavirus screen: Client presents with at least one sign or symptom that may indicate coronavirus-19. Ebola Screen: Patient negative for fever greater than or equal to 101.5 degrees Fahrenheit, and additional compatible Ebola Virus Disease symptoms Patient denies exposure to infectious person. Patient denies travel to an Ebola-affected area in the 21 days before illness onset. No symptoms or risks identified at this time. Initial Sepsis Screen: Does the patient meet any 2 criteria? No. Patient's initial sepsis screen is negative. Does the patient have a suspected source of infection? No. Patient's initial sepsis screen is negative. Risk Assessment: Do you want to hurt yourself or someone else? Patient reports no desire to harm self or others. Onset of symptoms was March 10, 2023. 09:09 Method Of Arrival: Wheelchair iw 09:09 Acuity: SOFIYA 3 iw Historical: - Allergies: 09:12 No Known Allergies; iw - Home Meds: 09:12 amlodipine oral [Active]; lisinopril Oral [Active]; iw - PMHx: 09:12 Hypertensive disorder; Lung Cancer; Prostate Cancer; iw - PSHx: 09:12 back; cardiac stent X4; right upper lobe resection; iw - Immunization history:: Client reports having NOT received the Covid vaccine. - Social history:: Smoking status: Patient/guardian denies using tobacco, the patient reports quitting approximately 30 years ago. - Family history:: not pertinent. - Hospitalizations: : No recent hospitalization is reported. Screenin:05 [facility] ED Fall Risk Assessment (Adult) Score/Fall Risk Level 0 - 2 = Low Risk. Abuse eh3 screen: Denies threats or abuse. Denies injuries from another. Nutritional screening: No deficits noted. Tuberculosis screening: No symptoms or risk factors identified. Assessment: 09:05 General: Appears in no apparent distress. uncomfortable, Behavior is calm, cooperative, eh3 appropriate for age. Pain: Complains of pain in abdomen. Neuro: Level of Consciousness is awake, alert, obeys commands, Oriented to person, place, time, situation. Cardiovascular: Capillary refill < 3 seconds Patient's skin is warm and dry. Respiratory: Airway is patent Respiratory effort is even, unlabored, Respiratory pattern is regular, symmetrical. GI: Abdomen is round non-distended, Reports nausea, vomiting. Derm: Skin is clammy, Skin is pink, Skin temperature is warm. Musculoskeletal: Circulation, motion, and sensation intact. 10:00 Reassessment: Patient appears in no apparent distress at this time. Patient and/or 3 family updated on plan of care and expected duration. Pain level reassessed. Patient is alert, oriented x 3, equal unlabored respirations, skin warm/dry/pink. 11:00 Reassessment: Patient appears in no apparent distress at this time. Patient and/or eh3 family updated on plan of care and expected duration. Pain level reassessed. Patient is alert, oriented x 3, equal unlabored respirations, skin warm/dry/pink. 12:00 Reassessment: Patient appears in no apparent distress at this time. Patient and/or eh3 family updated on plan of care and expected duration. Pain level reassessed. Patient is alert, oriented x 3, equal unlabored respirations, skin warm/dry/pink. Vital Signs: 09:09 BP 140 / 78; Pulse 70; Resp 19; Temp 99.2; Pulse Ox 99% on R/A; Weight 86.18 kg; Height iw 5 ft. 11 in. ; 10:00 BP 131 / 66; Pulse 66; Resp 18; Pulse Ox 96% on R/A; eh3 11:00 BP 109 / 56; Pulse 59; Resp 18; Pulse Ox 95% on R/A; eh3 12:00 BP 115 / 62; Pulse 64; Resp 18; Pulse Ox 96% on R/A; eh3 09:09 Body Mass Index 26.50 (86.18 kg, 180.34 cm) ED Course: 08:49 Patient arrived in ED. mg5 08:52 Maninder Streeter MD is Attending Physician. rn 09:05 Patient has correct armband on for positive identification. Bed in low position. Call eh3 light in reach. Side rails up X2. Provided Education on: Use of call correa. Pulse ox on. NIBP on. 09:11 Fernando Zaragoza, RN is Primary Nurse. rs5 09:11 Emilee Marquez, TOBY is Primary Nurse. eh3 09:12 Triage completed. iw 09:13 Arm band placed on. iw 09:35 Inserted saline lock: 20 gauge in right antecubital area, using aseptic technique. eh3 Blood collected. 09:57 XRAY Chest (1 view) In Process Unspecified. EDMS 10:32 CT Abd/Pelvis - IV Contrast Only In Process Unspecified. EDMS 12:23 No provider procedures requiring assistance completed. IV discontinued, intact, eh3 bleeding controlled, No redness/swelling at site. Pressure dressing applied. Administered Medications: 09:42 Drug: NS 0.9% IV 1000 ml Route: IV; Rate: 1000 ml; Site: right antecubital; eh3 11:34 Follow up: IV Status: Completed infusion; IV Intake: 1000ml eh3 09:42 Drug: Ondansetron IVP 4 mg Route: IVP; Site: right antecubital; eh3 10:30 Follow up: Response: No adverse reaction eh3 09:42 Drug: Ibuprofen PO 600 mg Route: PO; eh3 10:29 Follow up: Response: No adverse reaction eh3 Medication: 12:23 VIS not applicable for this client. eh3 Intake: 11:34 IV: 1000ml; Total: 1000ml. eh3 Outcome: 12:16 Discharge ordered by . rn 12:32 Discharged to home ambulatory, with family. eh3 12:32 Condition: stable 12:32 Discharge instructions given to patient, family, Instructed on discharge instructions, follow up and referral plans. medication usage, Demonstrated understanding of instructions, follow-up care, medications, Prescriptions given X 1. 12:32 Patient left the ED. eh3 Signatures: Dispatcher [employer] EDMS Gerda Randall RN RN iw Maninder Streeter MD MD rn Hall, Erin, RN RN 3 Fernando Zaragoza RN RN [facility] Elva Lay mg5
[2023-03-15 12:40] VITALS: TEMP 99.2
[2023-03-15 12:57] VITALS: BP 115/62; O2SAT 96
== END 2023-03-15 12:32 | disposition home or self-care (01) ==
LOC: ER 08:46
DX: U07.1 COVID-19 (principal); E86.0 Dehydration; I10 Essential (primary) hypertension; Z95.818 Presence of other cardiac implants and grafts
CPT/HCPCS: 96361; 85025; 80048; 36415; 82550; 80076; 74177; 71045; 96374; 99284; Q9967; J2405; J7030